=== PATIENT | male | born 1970 | race Caucasian/White ===

== ENCOUNTER 2021-01-04 13:22 | Emergency (ER) | payer MEDICARE, SELFPAY ==
--- NOTE | ~2021-01-04 | XR_ITS ---
EXAMINATION: XR lumbar spine 2-3V EXAM DATE: 01/04/2021 14:12 INDICATION: Fall, right sided low back and posterior rib pain. TECHNIQUE: Lumber spine frontal, lateral, lateral L5-S1 projections for interpretation. There is no prior study for comparison. FINDINGS: There are no acute fractures identified. Sacrum, sacroiliac joints, sacral arcuate lines ar e intact. The vertebral bodies are aligned in the AP dimension. There is mild disc disease T12-L1, L1 -2 and L2-3. There is mild lower lumbar facet arthropathy. Minimal lumbar levocurvature, could be pos itional. There is mild to moderate symmetric bilateral hip primary osteoarthritis. IMPRESSION: 1. No acute lumbar findings. 2. Mild spondylosis. Reviewed, dictated and finalized at location G.
[2021-01-04 13:22] VITALS: BP 144/99; PULSE 72; RESP 16; TEMP 36.4; O2SAT 98
[2021-01-04] MEDS: KETOROLAC (*BKC) 60 MG/2 ML VIAL IM (13:46)
[2021-01-04] MEDS: BACLOFEN 10 MG TABLET 20 MG PO (13:54)
[2021-01-04] MEDS: DEXAMETHASONE 4 MG TABLET 12 MG PO (13:54)
--- NOTE | 2021-01-04 14:06 | ED.FALL ---
HPI - Fall General Chief Complaint: Fall Stated Complaint: low back pain after fall Time Seen by Provider: 01/04/21 13:50 Source: patient Mode of arrival: ambulatory Limitations: no limitations History of Present Illness HPI Narrative: Patient comes in after a fall last pm. He has had soreness in his right flank area where he fell since that time. He comes in because of moderately severe, sharp pain, made worse with movement and has been ongoing. Nothing to suggest radicular pain. He has not taken anything at home for pain. Nothing has helped make this better or worse. Onset (ago): hour(s) Fall from: standing Place fall occurred: home Loss of consciousness: none Prolonged down time: no Context: tripped/slipped Location of injury: other (right flank) Severity: moderate Severity scale (1-10): 5 Quality: sharp Related Data Allergies Allergy/AdvReac Type Severity Reaction Status Date / Time No Known Allergies Allergy Unverified 04/09/14 15:54 Review of Systems Constitutional: Constitutional: Reports no additional constitutional complaints Eyes: Eyes: Reports no additional eye complaints ENT: Reports system reviewed and no additional complaints, except as documented Cardiovascular: Cardiovascular: Reports no additional cardiovascular complaints Respiratory: Respiratory: Reports no additional respiratory complaints Gastrointestinal: Gastrointestinal: Reports no additional gastrointestinal complaints Genitourinary: Genitourinary: Reports no additional male genitourinary complaints Musculoskeletal: Musculoskeletal: Reports back pain Integumentary/Breasts: Skin/Breast: Reports system reviewed and no additional complaints, except as docu Neurologic: Reports system reviewed and no additional complaints, except as documented Psychiatric: Psychiatric: Reports no additional psychiatric complaints Endocrine: Endocrine: Reports no additional endocrine complaints Hematologic/Lymphatic: Hematologic/Lymphatic: Reports no additional hematologic/lymphatic complaints Allergic/Immunologic: Allergic/Immunologic: Reports no additional allergic/immunologic complaints [facility] Past Medical History Medical History (Updated 01/04/21 @ 18:07 by Bhavesh Hurtado MD) No significant past medical history Surgical History Surgical History (Updated 01/04/21 @ 18:10 by Bhavesh Hurtado MD) H/O shoulder surgery Family History Family History (Updated 01/04/21 @ 18:07 by Bhavesh Hurtado MD) Other No significant family history Social History Social History (Updated 01/04/21 @ 18:09 by Bhavesh Hurtado MD) Smoking packs per day: 0.5 Smoking cigarettes per day: 10.0 Smoking status: Current every day smoker Tobacco type: cigarettes Alcohol intake: current Alcohol use details: occasional use Substance use: current Substance use type: marijuana Living arrangements: with family Gender identity (if verbalized by the patient): Male Sexual Orientation (if Verbalized by the Patient): Straight or Heterosexual Exam Const: General: no acute distress and alert Orientation/consciousness: patient oriented x3 HENMT: Head: normal to inspection Ears: external ears normal and TM's normal bilaterally General nose exam: Normal external nose present Mouth: Yes Normal oral and palatal mucosa present Throat: posterior oropharynx normal Eyes: Conjunctivae: conjunctivae normal Neck: Neck: normal visual inspection and no lymphadenopathy Chest: Chest palpation & inspection: normal inspection of the chest Resp: Effort & Inspection: normal respiratory effort Auscultation: clear to auscultation bilaterally Cardio: Rate: regular rate Rhythm: regular rhythm GI: Auscultation: normal bowel sounds Back/Spine/Pelvis: Other: Bruising on right flank, and associated abrasion from fall. He does not appear to have a hematoma here. He does not appear to have any tenderness over lumbar, of low thoracic spine. He has no sacr
[2021-01-04] MEDS: TETANUS,DIPHTHERIA,AC PERTUSSIS ADULT 0.5 ML (ADACEL) IM (14:47)
[2021-01-04 14:50] VITALS: BP 140/90; PULSE 70; RESP 15; O2SAT 100
== END 2021-01-04 14:54 | disposition home or self-care (01) ==
PROVIDERS: Emergency Provider Emergency Medicine; PCP Internal Medicine
DX: M54.5 Low back pain (principal); W19.XXXA Unspecified fall, initial encounter
CPT/HCPCS: 72100; 90471; 90715; 96372; 99283; A9270; J1885; J8540

== ENCOUNTER 2021-01-21 08:48 | Outpatient (RCR) | payer MEDICARE, SELFPAY ==
--- NOTE | 2021-01-21 09:59 | PTOPEVAL ---
Thank you for referring Quinten Hogue to [facility].? The patient is scheduled to be seen for therapy? ____x/week for ___ weeks. Please review, sign, date and return this plan of care KEENAN. I agree with and certify that the following plan of care is medically necessary. Referring Physician Date Admitting Provider: Attending Provider: QUE RIOZ Referring Provider: LeiPT Outpatient Evaluation Start: 01/21/21 08:47 Freq: Status: Active Protocol: Document 01/21/21 08:47 ACR (Rec: 01/21/21 09:50 ACR [id number]) Therapy Assessment Status Assessment Status Assessment Status Evaluation Outpatient Past Medical History Musculoskeletal History Hx Orthopedic Surgery Yes: R wrist, L shoulder Hx Spinal Surgery Yes: neck Evaluation Information Problem Diagnosis R shoulder pain Onset 07/24/20 Subjective Information Patient states about 6 months Query Text:As Reported By Patient/ ago he started to have pain Family and it started to become weaker and weaker. He states that he does not have my pain when he doesn't use it, but when he does use it, it is in excrutiating pain. Patient states reaching overhead, driving, lifting, and washing his hair or back are extremely difficulty. Patient states he got an MRI and there is a tear in the rotator cuff. Patient states his goal is to get stronger and to decrease the pain. Prior Level of Function Activity Level (Last 3 Months) Occupation disabled Hand Dominance Right Activity of Daily Living Ability Independent Indoor/Home Mobility Independent Community Mobility Independent Stairs Ability Independent Functional Cognition (Planning, Shopping Independent , Taking Medications) Cooking Yes Cleaning Yes Laundry Yes Shopping Yes Driving Yes Pain Assessment Timing of Pain Assessment Timing of Pain Assessment Pre-Treatment Pain Scale Pain Scale Used Numeric (1 - 10) Self Report Pain Assessment Right Shoulder(s) Reported Pain Level 3 Lowest Pain Intensity 3 Greatest Pain Intensity 10 Pain Score Pain Score 3: Self Report Interventions Us
--- NOTE | 2021-02-26 08:44 | PTOPEVAL ---
Thank you for referring Quinten Hogue to [facility].? The patient is scheduled to be seen for therapy? ____x/week for ___ weeks. Please review, sign, date and return this plan of care KEENAN. I agree with and certify that the following plan of care is medically necessary. Referring Physician Date Admitting Provider: Attending Provider: QUE RIZO Referring Provider: LeiPT Outpatient Evaluation Start: 01/21/21 08:47 Freq: Status: Active Protocol: Document 02/26/21 08:16 ACR (Rec: 02/26/21 08:43 ACR [email or web address]) Therapy Assessment Status Assessment Status Assessment Status Progress Outpatient Past Medical History Musculoskeletal History Hx Orthopedic Surgery Yes: R wrist, L shoulder Hx Spinal Surgery Yes: neck Evaluation Information Problem Diagnosis R shoulder pain Onset 07/24/20 Subjective Information Patient reports since Query Text:As Reported By Patient/ beginning therapy he continues Family to feel weak and the pain is still there, but he does feel like his range is better. Pain Assessment Timing of Pain Assessment Timing of Pain Assessment Assessment Pain Scale Pain Scale Used Numeric (1 - 10) Self Report Pain Assessment Right Shoulder(s) Reported Pain Level 3 Greatest Pain Intensity 8 Pain Score Pain Score 3: Self Report Interventions Used Interventions Used By Clinicians Activity or ADL's,Electrical Stimulation,Exercise,Heat Upper Extremity Range of Motion Scapular/ Shoulder Range of Motion Right Shoulder Flexion - Active 153 Shoulder Abduction - Active 142 Shoulder Medial Rotation - Active 63 Shoulder Lateral Rotation - Active 85 Upper Extremity Muscle Strength Testing Scapular/Shoulder Right Shoulder Flexion Strength 3+ Fair + Shoulder Abduction Strength 4+ Good + Shoulder Medial Rotation Strength 4- Good - Shoulder Lateral Rotation Strength 3+ Fair + Left Shoulder Flexion Strength 5 Normal Shoulder Abduction Strength 5 Normal Shoulder Medial Rotation Strength 5 Normal Shoulder Lateral Rotation Strength 5 Normal Elbow/Forearm Right Elbow Flexion Strength 4 Good Elbow Extension Strength 4 Good Left Elbow Flexion Strength 5 Normal Elbow Extension Strength 5 Normal Special Tests-Upper Extremity Shoulder Special Tests Empty Can (supraspinatus) Test Negative Left,Positive Right Drop Arm Test Negative Left,Positive Right Speed's Test Negative Left,Positive Right Hawkin's Jem Test Negative Left,Positive Right Infraspinatus Test Negative Left,Positive Right Lift Off Test
--- NOTE | 2021-05-14 15:01 | PCPTNOTE ---
05/14/21 - patient has not been to skilled PT in over a month. as of this date, he will be dc'd from skilled PT services and all progress towards goals will be taken from his most recent evaluation/note. JEAN CLAUDE
== END 2021-02-26 23:59 | disposition home or self-care (01) ==
LOC: CHSPT 08:48
DX: M25.511 Pain in right shoulder (principal)
CPT/HCPCS: 97014; 97110; 97161; G0283